=== PATIENT | female | born 1990 | race Caucasian/White ===

== ENCOUNTER 2024-10-19 11:04 | Emergency (ER) | payer OTHER ==
[~2024-10-19] VITALS: Ht 170.2 cm; Wt 60.7 kg
[2024-10-19] VITALS (12 sets, daily range): BP systolic 106–140; BP diastolic 63–75
[~2024-10-19 11:04] MED LIST: AUGMENTIN875TAB PO; B-12 COMPL1000 MCG/M IM; HYDROCORTISONE12 TOP; MINOCYCLINE50 MG PO; RETIN-A0.025 % EX; RETIN-A0.05 % EX; VISTARIL25 MG PO; VITAMIN DE1000 MCG/M IM
[2024-10-19] MEDS ORDERED: WEGOVY0.25 MG (11:23)
[2024-10-19 11:33] LABS: BASO% 1.9 % (0-3); EOS% 2.8 % (0-8); IMMATURE GRANULOCYTES 0.5 % (0.0-5.0); LYMPH% 36.6 % (15-41); MEAN CELL VOLUME 87.9 fL CALC (80.0-100.0); MEAN CORPUSCULAR HGB 28.9 pG CALC (26.0-32.0); MEAN CORPUSCULAR HGB CONC 32.9 g/dL CAL (32.0-36.0); MONO% 5.2 % (2-13); NEUT# 3.03 thou/uL (2.00-7.15); RED BLOOD COUNT 4.7 mill/uL (4.20-5.60); RED CELL DISTRI WIDTH 12.6 % (11.5-15.5)
[2024-10-19 11:36] LABS: HEMATOCRIT 41.3 % (37.0-47.0); HEMOGLOBIN 13.6 g/dl (12.0-16.0)
[2024-10-19 11:37] LABS: URINE BILIRUBIN - DIPSTICK Negative (NEGATIVE); URINE BLOOD DIPSTICK Negative (NEGATIVE); URINE GLUCOSE - DIPSTICK Negative (NEGATIVE); URINE KETONE Negative (NEGATIVE); URINE LEUK ESTERASE Negative (NEGATIVE); URINE NITRITE - DIPSTICK Negative (Negative); URINE PROTEIN - DIPSTICK Negative (NEG-TRACE); URINE SPECIFIC GRAVITY 1.025; URINE UROBILINOGEN - DIPSTICK 0.2 E.U./dL (0.2)
[2024-10-19 11:38] LABS: URINE COLOR Yellow
[2024-10-19 11:57] LABS: ALBUMIN 4.6 g/dL (3.2-5.0); ALKALINE PHOSPHATASE 30 u/l (38-126); ANION GAP 15 (6-22 (CALC)); BILIRUBIN, TOTAL 1.8 mg/dL (0.02-1.3); BUN 10 mg/dL (7-17); BUN/CREATININE RATIO 13 (12-20 (CALC)); CARBON DIOXIDE 21 mmol/l (22-30); CHLORIDE 104 mmol/l (95-108); CREATININE 0.7 mg/dL (0.5-1.0); ESTIMATED GFR 117 ML/MIN (>=90 (CALC)); POTASSIUM 3.7 mmol/l (3.5-5.1); SGOT/AST 28 u/l (14-36); SODIUM 137 mmol/l (137-146); TOTAL PROTEIN 7.6 g/dL (6.3-8.2)
[2024-10-19] MEDS ORDERED: SODIUM CHLORIDE 0.9% 1,000 ML IV ONE (12:25)
== END 2024-10-19 14:29 | disposition home or self-care (01) | DRG 125 ==
LOC: ED 11:04
PROVIDERS: Family Medicine
DX: H53.8 Other visual disturbances (principal)